=== PATIENT | female | born 1985 | race African-American/Black ===

== ENCOUNTER 2017-12-17 15:50 | Emergency (ER) | payer SELFPAY ==
[~2017-12-17] VITALS: Ht 165.1 cm; Wt 70.0 kg
[2017-12-17] MEDS ORDERED: ACETAMINOPHEN 500MG TABLET PO ONE (16:45)
[2017-12-17 16:54] VITALS: BP 115/79
== END 2017-12-17 16:55 | disposition home or self-care (01) ==
LOC: EDSTATUS 15:50 → ER2 15:52 → ER 16:55
DX: O26.899 Other specified pregnancy related conditions, unspecified trimester (principal); R51 Headache; M54.5 Low back pain; Z3A.00 Weeks of gestation of pregnancy not specified; V43.52XA Car driver injured in collision with other type car in traffic accident, initial encounter; Y93.89 Activity, other specified; Y92.488 Other paved roadways as the place of occurrence of the external cause
CPT/HCPCS: 99283; Z7610

== ENCOUNTER 2018-02-20 21:26 | Observation (INO) | payer MEDICAID ==
[~2018-02-20] VITALS: Ht 170.2 cm; Wt 78.0 kg
[2018-02-20] MEDS ORDERED: ACETAMINOPHEN 500MG TABLET PO NR (22:45)
== END 2018-02-20 23:35 | disposition home or self-care (01) ==
LOC: L&D 21:26
PROVIDERS: ADMIT Obstetrics & Gynecology; ATTEND Obstetrics & Gynecology
DX: O62.9 Abnormality of forces of labor, unspecified (principal); Z3A.38 38 weeks gestation of pregnancy
CPT/HCPCS: 99281; G0378

== ENCOUNTER 2018-03-02 18:20 | Inpatient (IN) | payer MEDICAID ==
[~2018-03-02] VITALS: Ht 170.2 cm; Wt 70.8 kg
[2018-03-02] MEDS ORDERED: LACTATED RINGERS 1,000 ML IV SCH ×2 (19:01→19:16)
[2018-03-02] MEDS ORDERED: CARBOPROST TROMETHAMINE 250 MCG/ML AMPUL IM PRN (19:15)
[2018-03-02] MEDS ORDERED: LIDOCAINE HCL 1% 20ML VIAL (Pyxis) INJ INFIL SCH (19:15)
[2018-03-02] MEDS ORDERED: NALOXONE HCL 0.4 MG/ML 1ML VIAL IM PRN (19:15)
[2018-03-02] MEDS ORDERED: METHYLERGONOVINE MALEATE 0.2 MG/ML IM PRN (19:15)
[2018-03-02] MEDS ORDERED: PENICILLIN G POTASSIUM 5 MMU in DEXT 5% WATER 100 ML IV NR (19:30)
[2018-03-02 20:33] LABS: BASOPHILS % 1.4 % (0.0-2.0); EOSINOPHILS % 1.3 % (0.0-5.0); HEMATOCRIT. 30.9 % (36.0-48.0); HEMOGLOBIN. 10.3 g/dL (12.0-16.0); LYMPHOCYTES % 18.6 % (20.0-50.0); MEAN CORPUSCULAR HEMOGLOBIN 30.1 pg (28.0-32.0); MEAN CORPUSCULAR VOLUME 90.4 fL (81.0-99.0); MEAN PLATELET VOLUME 9.5 fl (7.4-10.4); MONOCYTES % 9.1 % (2.0-8.0); NEUTROPHILS % 69.6 % (40.0-76.0); PLATELET 216 x1000/uL (130-400); RED BLOOD CELL COUNT 3.42 mill/uL (4.2-5.4); RED CELL DISTRIBUTION WIDTH 14.9 % (11.6-14.6)
[2018-03-02 20:34] LABS: CLARITY URINE CLEAR (CLEAR); COLOR URINE YELLOW (YELLOW); KETONES URINE NEGATIVE (NEGATIVE); LEUKOCYTE ESTERASE URINE NEGATIVE (NEGATIVE); NITRITE URINE NEGATIVE (NEGATIVE); OCCULT BLOOD URINE NEGATIVE (NEGATIVE); PH URINE 6.5 (4.5-8.0); PROTEIN URINE NEGATIVE (NEGATIVE); UROBILINOGEN URINE 0.2 E.U./dL (0.2-1.0)
[2018-03-02 20:40] LABS: PROTHROMBIN TIME 9.9 sec (9.1-11.1)
[2018-03-02 20:45] LABS: *AMPHETAMINES SCREEN URINE NEGATIVE (NEGATIVE); *BARBITURATES SCREEN URINE NEGATIVE (NEGATIVE); *BENZODIAZEPINES SCREEN URINE NEGATIVE (NEGATIVE); *COCAINE SCREEN URINE NEGATIVE (NEGATIVE); METHADONE URINE SCREEN NEGATIVE (NEGATIVE)
[2018-03-02 20:46] LABS: CANNABINOID URINE SCREEN NEGATIVE (NEGATIVE); OPIATES URINE SCREEN NEGATIVE (NEGATIVE); PHENCYCLIDINE URINE SCREEN NEGATIVE (NEGATIVE)
[2018-03-02 21:03] LABS: HEPATITIS B SURFACE AB < 3.1 mIU/mL
[2018-03-02 21:14] LABS: HEPATITIS B SURFACE ANTIGEN NEGATIVE; RUBELLA IGG 68.8 IU/mL (4.99-10)
[2018-03-02] MEDS ORDERED: ACETAMINOPHEN 500MG TABLET PO NR (21:30)
[2018-03-02] MEDS: BUTORPHANOL TARTRATE 2 MG/ML VIAL IV PRN (22:14)
[2018-03-03] MEDS: PENICILLIN G POTASSIUM 2.5 MMU in DEXTROSE 5% WATER 50 ML IV SCH ×3 (01:03→09:23)
[2018-03-03] MEDS: BUTORPHANOL TARTRATE 2 MG/ML VIAL IV PRN ×2 (01:09→03:19)
[2018-03-03] MEDS: DEXT 5%/LR + PITOCIN 20UNITS/L 1,000 ML IV SCH ×2 (09:24→10:35)
[2018-03-03] MEDS ORDERED: DEXT 5%/LR + PITOCIN 20UNITS/L 1,000 ML IV SCH (13:20)
[2018-03-03] MEDS ORDERED: METHYLERGONOVINE MALEATE 0.2 MG/ML IM PRN (13:30)
[2018-03-03] MEDS ORDERED: RHO(D) IMMUNE GLOBULIN 300 MCG/SYR IM PRN (13:30)
[2018-03-03] MEDS ORDERED: IBUPROFEN 400MG TABLET PO PRN (13:30)
[2018-03-03] MEDS: IBUPROFEN 800MG TABLET PO PRN ×2 (14:02→20:11)
[2018-03-03] MEDS: ACETAMINOPHEN WITH CODEINE 300/30MG TABLET PO PRN ×2 (15:36→23:49)
[2018-03-03 16:00] VITALS: BP 128/81
[2018-03-03 16:30] VITALS: BP 135/87
[2018-03-03 18:13] VITALS: BP 121/77
[2018-03-03 20:00] VITALS: BP 126/80
[2018-03-04] VITALS: BP 114/70
[2018-03-04] MEDS: IBUPROFEN 800MG TABLET PO PRN ×4 (02:02→19:53)
[2018-03-04 07:03] LABS: BASOPHILS % 0.3 % (0.0-2.0); EOSINOPHILS % 1.5 % (0.0-5.0); HEMATOCRIT. 27.2 % (36.0-48.0); HEMOGLOBIN. 9.2 g/dL (12.0-16.0); LYMPHOCYTES % 20.7 % (20.0-50.0); MEAN CORPUSCULAR HEMOGLOBIN 30.6 pg (28.0-32.0); MEAN CORPUSCULAR VOLUME 90.5 fL (81.0-99.0); MEAN PLATELET VOLUME 9.7 fl (7.4-10.4); MONOCYTES % 8.4 % (2.0-8.0); NEUTROPHILS % 69.1 % (40.0-76.0); PLATELET 182 x1000/uL (130-400); RED BLOOD CELL COUNT 3.01 mill/uL (4.2-5.4); RED CELL DISTRIBUTION WIDTH 14.7 % (11.6-14.6)
[2018-03-04 08:00] VITALS: BP 109/65
[2018-03-04] MEDS: ACETAMINOPHEN WITH CODEINE 300/30MG TABLET PO PRN ×2 (10:32→16:41)
[2018-03-04] MEDS: PRENATAL VIT/FE FUMARATE/FA TABLET PO SCH (10:32)
[2018-03-04 13:16] VITALS: BP 106/64
[2018-03-04 20:00] VITALS: BP 127/75
[2018-03-05] MEDS: ACETAMINOPHEN WITH CODEINE 300/30MG TABLET PO PRN ×2 (00:40→08:42)
[2018-03-05 04:00] VITALS: BP 108/65
[2018-03-05] MEDS: IBUPROFEN 800MG TABLET PO PRN (04:11)
[2018-03-05 08:00] VITALS: BP 129/84
[2018-03-05] MEDS: PRENATAL VIT/FE FUMARATE/FA TABLET PO SCH (08:42)
== END 2018-03-05 09:45 | disposition home or self-care (01) | DRG 560 ==
LOC: L&D 18:20 → OBSVTOIN 18:20 → 7EST PP/OB 03-03 16:00
PROVIDERS: ADMIT Obstetrics & Gynecology; ATTEND Obstetrics & Gynecology
PROC: 10E0XZZ Delivery of Products of Conception, External Approach (ICD-10-PCS; principal; 2018-03-03 13:04)
DX: O48.0 Post-term pregnancy (principal); D64.9 Anemia, unspecified; O99.02 Anemia complicating childbirth; Z37.0 Single live birth; Z3A.40 40 weeks gestation of pregnancy
CPT/HCPCS: 36415; 80305; 81003; 85025; 85610; 85730; 86592; 86703; 86706; 86762; 86850; 86900; 87340; 99281; J0595; J2540; J2590; J7060; J7120